=== PATIENT | male | born 1990 | race Two or more races ===

== ENCOUNTER 2018-05-05 19:23 | Emergency (ER) | payer SELFPAY ==
[~2018-05-05] VITALS: Ht 182.9 cm; Wt 65.8 kg
[2018-05-05 19:34] VITALS: BP 109/66
[2018-05-05] MEDS ORDERED: LIDOCAINE W/ EPINEPHRINE 1 % INJ 30ML ONE (20:29)
[2018-05-05] MEDS ORDERED: LIDOCAINE W/ EPINEPHRINE 2% INJ 20ML VIAL IJ ONE (20:30)
[2018-05-05] MEDS ORDERED: TETANUS-DIPTH-ACEL PERTUSSIS 0.5ML SYRG IM ONE (21:00)
[2018-05-05] MEDS ORDERED: cefTRIAXone SOD 1,000 MG VL IM ONE (21:00)
[2018-05-05] MEDS ORDERED: BACITRACIN INJ 50000 UNIT VIAL TOP ONE (21:00)
[2018-05-05] MEDS ORDERED: LIDOCAINE W/ EPINEPHRINE 1% 20ML VIAL ID ONE (21:00)
[2018-05-05] MEDS ORDERED: BACITRACIN-POLYMYXIN B TOPICAL OINT UD TOP ONE ×2 (21:09→21:30)
== END 2018-05-05 21:15 | disposition home or self-care (01) ==
LOC: ER 19:39
DX: S61.210A Laceration without foreign body of right index finger without damage to nail, initial encounter (principal); W26.9XXA Contact with unspecified sharp object(s), initial encounter; Y93.89 Activity, other specified; Y99.8 Other external cause status; Y92.89 Other specified places as the place of occurrence of the external cause
CPT/HCPCS: 12002; 90471; 90715; 96372; 99283; J0696; J2001